=== PATIENT | male | born 1995 | race African-American/Black ===

== ENCOUNTER 2022-04-19 10:49 | Emergency (ER) | payer MEDICAID ==
[~2022-04-19] VITALS: Ht 170.2 cm; Wt 63.5 kg
--- NOTE | 2022-04-19 10:58 | NUR ---
BIBS C/O LOWER ABOMINAL PAIN THAT STARTED FRI, PT STATED THAT HE MAY HAVE HAD A STD EXPOSURE. PT VITALS ARE WITHIN NORMAL LIMITS, NO RESP DISTRESS NOTED. AWAITING MD ORDERS.
--- NOTE | 2022-04-19 11:28 | NUR ---
URINE COLLECTED AND SENT
[2022-04-19] MEDS ORDERED: DOXY100C2 PO (11:36)
[2022-04-19] MEDS ORDERED: CEFTRIAXONE 1 G VIAL ONE (11:47)
[2022-04-19] MEDS ORDERED: LIDOCAINE /MPF 1% VIAL 5 ML VIAL ONE (11:47)
[2022-04-19] MEDS ORDERED: DOXYCYCLINE HYCLATE (100 MG) 100 MG TABLET ONE (11:47)
[2022-04-19 11:56] VITALS: BP 127/74
--- NOTE | 2022-04-19 11:56 | NUR ---
Patient discharged to home in stable condition. Written and verbal after care instructions given. Patient verbalizes understanding of instruction.
[2022-04-19] MEDS ORDERED: DOXYCYCLINE HYCLATE (100 MG) 100 MG TABLET PO ONE (12:00)
[2022-04-19] MEDS ORDERED: CEFTRIAXONE 500 MG VIAL IM ONE (12:00)
== END 2022-04-19 11:59 | disposition home or self-care (01) ==
LOC: ER 10:52
DX: N34.2 Other urethritis (principal); A64 Unspecified sexually transmitted disease; Z79.899 Other long term (current) drug therapy
CPT/HCPCS: 99283; 96372; 87491; 87591; J0696; J3490